=== PATIENT | female | born 1965 | race Two or more races ===

== ENCOUNTER 2022-08-28 10:42 | Inpatient (IN) | payer SELFPAY ==
[~2022-08-28] VITALS: Ht 165.1 cm; Wt 87.7 kg
--- NOTE | ~2022-08-28 | CONS ---
[facility] [address], [place] [address] Draft DATE OF CONSULTATION: REQUESTING PHYSICIAN: Kody Muñiz MD HISTORY OF PRESENT ILLNESS: The patient is a 57-year-old, who came to the emergency room yesterday with a complaint of abdominal and pelvic pain. She reports the pain over most of the abdomen with some sharp pain in the vaginal area. The sharp pain started yesterday morning. She does have a long history of vaginal pressure and bulging, but this had not really caused any issues for her up to this point. She denied any nausea, vomiting, dysuria, or fever. During the course of her evaluation, she was found to have gallstones, though there was no evidence of cholecystitis. She was also found to have a right adnexal mass with some free fluid and possible involvement of the omentum. She was also found to have an apparent UTI. She is actually feeling much better today. She has been only on clear liquids since her admission. She reports her last Pap smear was about four years ago with her primary care. She was told that this was normal as was her exam. Her last mammogram was about four years ago as well. She is a 4, para 3, ectopic 1. Her children were weighed 6-7 pounds only. She denies any complications with her childbirth. PAST MEDICAL HISTORY: Surgeries: Left knee tendon surgery, right ectopic . Illnesses: Positive for type 2 diabetes, and denies any sequelae from this. Positive for hypothyroidism on replacement. Positive for hypertension. ALLERGIES: Aspirin with rash. MEDICATIONS: 1. Metformin. 2. Glipizide. 3. Lisinopril. 4. Levothyroxine. 5. Lovastatin. HABITS: Never tobacco, alcohol, or drug use. NURSERY ATTENDANT HISTORY: Last Pap was about four years ago. Last mammogram was about four years ago. She is a 4, para 3, ectopic 1. No vaginal bleeding and reported menopause approximately at age 50. PATIENT NAME: MARÍA BERGMAN CONSULTATION DATE OF : 61 REPORT #: [id number] PHYSICIAN: MARISOL PANG MD PCP: MUKUND FRAZIER MD REPORT IS CONFIDENTIAL AND NOT TO BE RELEASED WITHOUT AUTHORIZATION [facility] [address], [place] [address] Draft REVIEW OF SYSTEMS: : Denies any urgency, frequency, incomplete emptying, or any incontinence. GI: Denies nausea, vomiting, GERD, or change in bowel habits. PHYSICAL EXAMINATION: VITAL SIGNS: On exam, blood pressure is 111/63, pulse 117, and temperature 99.8. GENERAL: She is a well-developed, well-nourished female, in no acute distress. NEUROLOGIC: She is alert and oriented. Her affect is pleasant and cooperative. She is Citizen [place] speaking and history was obtained through an clinical rn manager, both with the tele-clinical rn manager as well as a Citizen [place]-speaking nurse. LUNGS: Clear. HEART: Regular rate and rhythm without murmur. ABDOMEN: Active bowel sounds. It was obese and soft. It was diffusely tender, but mostly in the epigastric and right upper quadrant area as well as the suprapubic area. PELVIC: The Bartholin's, urethra, and [place]'s glands were normal. There was a very short perineum. There was a grade 4 cystocele with bulging beyond the introitus. The cervix presented within 2 cm of the hymen and was nontender and non friable. The uterus appeared to be normal size, firm, and nontender. The adnexa, no obvious masses palpated and she was not tender, but her exam was limited by her obesity. The bladder, however, was tender. Rectal examination confirmed. LABORATORY DATA: Her labs revealed a white count of 12.6 today, hemoglobin of 12.2, hematocrit of 36.3, left shift of 87.6, and platelets 296. Chemistry revealed a sodium of 132, potassium 3.9, chloride 100, CO2 of 20, BUN 12, creatinine 0.8, and glucose 217. Normal LFTs. IMAGING STUDIES: Abdominal pelvic CT done in the emergency room showed a marked pelvic floor prolapse with large cystocele dragging down the ureteral orifices. There is some compression of the right distal ureter with a complex partially solid mass seen in the right adnexa as well as cholelithiasis. Pelvic ultrasound done today revealed the right ovary was 8.9 x 3.6 x 6.2 with a complex cystic lesion versus multiple small complex cysts with a small amount of free fluid. Normal uterus and normal left ovary. IMPRESSION: Cholelithiasis, urinary tract infection, significant uterovaginal prolapse, as well as a right adnexal mass. I think the majority of her pain is related to her gallbladder as well as her urinary tract infection. She does have significant uterovaginal prolapse and it is important that this be reduced given the effect on the ureters and her right kidney. She is interested in trying a pessary at this point, and if this will reduce her prolapse significantly and she is comfortable with this, she may potentially be able to avoid surgery for the uterovaginal prolapse. The right adnexal mass at this point does not appear to be worrisome, though this will probably eventually need to be PATIENT NAME: MARÍA BERGMAN CONSULTATION DATE OF : 61 REPORT #: [id number] PHYSICIAN: MARISOL PANG MD PCP: MUKUND FRAZIER MD REPORT IS CONFIDENTIAL AND NOT TO BE RELEASED WITHOUT AUTHORIZATION [facility] [address], [place] [address] Draft addressed. We are awaiting a CA-125, but the general appearance of this ovary is not malignant. PLAN: Pap with HPV obtained. PROCEDURE: She was fitted for a pessary and was found to have a 2.5 Gellhorn, which was comfortable for her and she was able to void and this significantly reduced her prolapse. We will recheck her in the office in one month for this. Consult results were discussed with Dr. Muñiz. Marisol Pang MD PJW/MODL /[id number] Copies: ~ PATIENT NAME: MARÍA BERGMAN CONSULTATION DATE OF : 61 REPORT #: [id number] PHYSICIAN: MARISOL PANG MD PCP: MUKUND FRAZIER MD REPORT IS CONFIDENTIAL AND NOT TO BE RELEASED WITHOUT AUTHORIZATION
[2022-08-28] MEDS ORDERED: METFORMIN HCL1000 MG PO (11:25)
[2022-08-28] MEDS ORDERED: LISINOPRIL20 MG PO (11:26)
[2022-08-28] MEDS ORDERED: LEVOTHYROXINE125 MC1 PO (11:26)
[2022-08-28] MEDS ORDERED: LIPITOR20 MG PO (11:27)
--- NOTE | 2022-08-28 16:08 | NUR ---
AT 1553 BEDSIDE REPORT RECIEVED FROM DARIUS BOWEN PT ARRIVED TO MED SURG ROOM 122, VIA STRETCHER. PT ABLE TO MOVE SELF FROM STRETCHER TO BED W/O DIFFICULTY. FAMILY AT BEDSIDE. ORIENTED TO CALL LIGHT, WITHIN REACH.
[2022-08-28] MEDS ORDERED: GLUCOTROL XL5 MG PO (16:32)
[2022-08-28] MEDS ORDERED: LOVASTATIN20 MG PO (16:33)
--- NOTE | 2022-08-28 16:33 | NUR ---
CURRICULUM DIRECTOR SERVICES OBTAINED THROUGH IPAD - SURGEON ALLOWS FAMILY TO TRANSLATE.
[2022-08-28] MEDS ORDERED: LEVOTHYROXINE125 MCG PO (17:46)
[2022-08-28] MEDS ORDERED: ADULT LOW DOSE81 MG PO (17:46)
--- NOTE | 2022-08-28 17:46 | NUR ---
MED REC COMPLETE
--- NOTE | 2022-08-28 19:30 | NUR ---
REPORT RECEIVED FROM DARIUS MADRID. PT LAYING IN BED AND RESPONDS WHEN ADDRESSED. FAMILY IN ROOM ON COUCH. PT REQUESTING WATER, WATER PROVIDED. PT DENIES ANY OTHER NEEDS AT THIS TIME. CALL LIGHT IN REACH.
--- NOTE | 2022-08-28 19:40 | NUR ---
MD UPDATED ON CT RESULTS VIA TELEPHONE - ORDER RECEIVED TO CHANGE FLUIDS AND DIET ORDER. NO FURTHER ORDERS RECEIVED. MD TO CONSULT UROLOGY.
--- NOTE | 2022-08-28 20:24 | NUR ---
PT. BLOOD GLUCOE CHECKED AND DOCUMENTED. PT. VITALS SIGNS CHARTED. NURSE NOTIFIED OF TACHYCARDIA AND FEVER. FRESH ICE WATER PROVIDED. NO I/OS TO DOCUMENT, PT. ENCOURAGED TO DRINK FLUIDS. CALL LIGHT LEFT WITHIN REACH. NO OTHER IMMEDIATE NEEDS AT THIS TIME.
--- NOTE | 2022-08-28 20:54 | NUR ---
IN TO ADMINISTER MEDICATION, SEE MAR. PT SITTING UP IN BED WITH LIGHTS IN ROOM OFF. PT RESPONDS WHEN ADDRESSED. FAMILY IN ROOM. VITALS AND I&Os COMPLETE. PT DENIES TOILETING AT THIS TIME. ASSESSMENT COMPLETE. LUNG SOUNDS CLEAR. BOWEL TONES HYPOACTIVE. PT REPORTS TENDERNESS TO ABD WITH PALPATION. PT REPORTING PAIN 4/10 IN ABD AND REQUESTING PRN PAIN MEDICATION. PRN PAIN MEDICATION ADMINISTERED, SEE MAR. PT DENIES ANY OTHER NEEDS AT THIS TIME. CALL LIGHT IN REACH. FAMILY IN ROOM DENIES ANY NEEDS AT THIS TIME.
--- NOTE | 2022-08-28 22:35 | NUR ---
IN TO ROUND ON PT. MARLIN PULIDO IN ASSISTING PT WITH TOILETING. PT REPORTING PAIN /. PT DENIES ANY OTHER NEEDS AT THIS TIME. CALL LIGHT IN REACH. FAMILY IN ROOM.
--- NOTE | 2022-08-28 22:37 | NUR ---
ASSISTED PT. TO BATHROOM. PT. VOIDED, OUTPUT DOCUMENTED. PT. BRUSHED TEETH AND IS BACK IN BED. CALL LIGHT LEFT WITHIN REACH. NO OTHER IMMEDIATE NEEDS AT THIS TIME.
--- NOTE | 2022-08-29 00:30 | NUR ---
IN TO ROUND ON PT. PT LAYING IN BED WITH EYES CLOSED. RR EVEN AND UNLABORED. IN CHAIR AT BEDSIDE AND STATES "EVERYTHING IS FINE" WHEN ASKED IF EVERYTHING WAS OKAY. DENIES ANY NEEDS AT THIS TIME. CALL LIGHT IN REACH.
--- NOTE | 2022-08-29 02:07 | NUR ---
IN TO ROUND ON PT. PT RESTING IN BED WITH EYES CLOSED. RR EVEN AND UNLABORED. MARLIN GUARDADO IN TO ASSIST WITH VITALS. VITALS AND I&Os COMPLETE. ASSESSMENT COMPLETE. LUNG SOUNDS CLEAR. BOWEL TONES ACTIVE. PT DENIES PAIN AT THIS TIME. WATER PROVIDED. PT DENIES TOILETING AT THIS TIME. PT DENIES ANY OTHER NEEDS AT THIS TIME. CALL LIGHT IN REACH. IN CHAIR DENIES ANY NEEDS.
--- NOTE | 2022-08-29 03:21 | NUR ---
IN CHAIR AT BEDSIDE.
--- NOTE | 2022-08-29 04:03 | NUR ---
IN IV PUMP ALARMING, RESOLVED. PT REPOSITIONING SELF IN BED. PT REPORTING PAIN /10 AND REQUESTING PRN PAIN MEDICATION. PRN PAIN MEDICATION ADMINISTERED, SEE MAR. PT TAKES PO MEDICATION WITH NO ISSUES. WATER PROVIDED. PT DENIES ANY OTHER NEEDS AT THIS TIME. CALL LIGHT IN REACH. IN CHAIR DENIES ANY NEEDS.
--- NOTE | 2022-08-29 05:08 | NUR ---
IN TO ROUND ON PT. LAB IN ROOM. VITALS AND I&Os COMPLETE. PT DENIES TOILETING NEEDS AT THIS TIME. MEDICATION ADMINISTERED, SEE MAR. PT TAKES PO MEDICATION WITH NO ISSUES. PT DENIES ANY OTHER NEEDS AT THIS TIME. CALL LIGHT IN REACH. IN CHAIR DENIES ANY NEEDS AT THIS TIME.
--- NOTE | 2022-08-29 06:47 | NUR ---
IN TO ROUND ON PT. PT REQUESTING TOILETING. PT AMBULATES A SBA FROM BED TO RESTROOM AND BACK TO BED. URINE OUTPUT NOTED TO BE CONCENTRATED. PT DENIES ANY OTHER NEEDS AT THIS TIME. CALL LIGHT IN REACH.
--- NOTE | 2022-08-29 08:00 | NUR ---
RECIEVED SHIFT REPORT. PT LAYING IN BED, AWAKE. REPORTS SHOULDER PAIN, REFUSES PRN PAIN MEDICATION. CALL LIGHT IN REACH.
--- NOTE | 2022-08-29 09:38 | NUR ---
PT RESTING IN BED, REPORTED SHOULDER PAIN 8/10, PRN PAIN MEDICATION ADMINISTERED (PER EMAR). DR DELGADO IN ROOM TO DISCUSS POC WITH PT AND FAMILY. PT DENIES NAUSEA, REMAINS FEELING BLOATED. BOWEL TONES HYPOACTIVE IN ALL QUADRANTS, TENDER WITH PALPATION. CALL LIGHT IN REACH. FAMILY AT BEDSIDE.
--- NOTE | 2022-08-29 11:50 | NUR ---
PT RESTING IN BED, PAIN 4/10, TOLERABLE. CALL LIGHT IN REACH. FAMILY AT BEDSIDE.
--- NOTE | 2022-08-29 13:50 | NUR ---
PT TRANSFERED VIA WC TO [facility] ROOM FOR PELVIC EXAM WITH DR BOURNE. BRADLEY RN IN ROOM FOR TRANSLATION. PT POSITIONED ON STRETCHER, PELVIC EXAM PERFORMED BY DR BOURNE WITH THIS RN AND BRADLEY RN PRESENT. PESSARY PLACED BY DR BOURNE, PT TOLERATED EXAM AND PESSARY PLACEMENT WELL WITH MINIMAL PAIN. PT ABLE TO SIT, STAND AND URINATE AFTER PESSARY PLACEMENT. DR BOURNE DISCUSSED FOLLOW UP VISIT WITH PT IN ONE WITH. PT VERBALIZED UNDERSTANDING VIA TRANSLATION. PT TRANSFERED BACK TO RM 122. PT DENIES FURTHER NEEDS AT THIS TIME. CALL LIGHT IN REACH.
--- NOTE | 2022-08-29 14:31 | NUR ---
PT REPORTS HAVING A FEVER, THIS RN IN ROOM TO ASSESS. 99.1 ORAL. CALL LIGHT IN REACH. PT REFUSED A COOL WASH CLOTH.
--- NOTE | 2022-08-29 15:00 | NUR ---
PT UPDATED ON POC TO HAVE SURGERY TOMORROW. JOB INTERVIEWER USED. ALL QUESTIONS ANSWERED.
--- NOTE | 2022-08-29 15:10 | NUR ---
PT REQUESTED PAIN MEDICATION, / IN THE ABD. PRN MEDICATION ADMINISTERED (PER EMAR). DENIES FURTHER NEEDS. CALL LIGHT IN REACH. FAMILY AT BEDSIDE.
--- NOTE | 2022-08-29 16:42 | NUR ---
PT RESTING IN BED, EYES CLOSED, BREATHING EVEN AND UNLABORED. FAMILY AT BEDSIDE. CALL LIGHT IN REACH
--- NOTE | 2022-08-29 16:50 | NUR ---
PT IN PERSONAL WHEELCHAIR, NO URINE SINCE CATHETER REMOVED. CAREGIVER STATED PT HOLDS URINE WHEN UPRIGHT. MD NOTIFIED, NO NEW ORDERS.
--- NOTE | 2022-08-29 18:40 | NUR ---
SPOKE WITH DR DELGADO REGARDING PT TEMP 101.3, HR 139, RR 30 AND PT NOT URINATING SINCE PESSARY PLACEMENT AT 1400. DISCUSSED SEPSIS PROTOCOL ORDERS, FLUID BOLUS, AND POSSIBLE UROLOGY CONSULT. TELEPHONE ORDERS FOR BLOOD CULTURES, LEVAQUIN PER PHARMACY DOSE, ADMINISTER TYLENOL AND INCREASE FLUID TO 100MLS/HR. DR DELGADO VERBALIZED HE WOULD DISCUSS PLAN OF CARE WITH DR BOURNE AND RADIOLOGIST FOR POTENTIAL IMAGING. THIS RN DISCUSSED PT VS, PRESENTATION AND PHONE CALL TO DR DELGADO WITH SCIENCE FACULTY MEMBER.
--- NOTE | 2022-08-29 19:50 | NUR ---
PLACED CALL TO MD DUE TO CRITICAL LACTIC. NO NEW ORDERS AT THIS TIME.
--- NOTE | 2022-08-29 20:37 | NUR ---
assited dr willis to use physical medicine physician to explain updated plan of care.
--- NOTE | 2022-08-29 21:05 | NUR ---
DR. DELGADO IS HERE AT BEDSIDE. NEW ORDERS PLACED IN [facility] AND CARRIED OUT. CRITICAL LABS HAVE BEEN REPORTED TO DR. BREEN. PATIENT STARTED ON ABX.
--- NOTE | 2022-08-30 02:02 | NUR ---
PATIENTS IV ABX INFUSING PER ORDER. PATIENT IS NOW SL PER ORDER. PATIENT DENIES ANY PAIN OR NAUSE. PATIENT DENIES ANY NEEDS. CALL LIGHT IN REACH.
--- NOTE | 2022-08-30 03:45 | NUR ---
PATIENT ASSISTED TO THE BR A SBA. PATIENT ABLE TO VOID. PATIENT BACK IN BED RESTING. PATIENT IS RED IN THE FACE AND APPEARS PAINFUL AND IS HOLDING HER LOWER ABD. PATIENTS VITALS TAKEN AND RECORDED. PATIENTS HR ELEVATED. PATIENT DENIES ANY PAIN BUT IS HOLDING HER ABD AND APPEARS PAINFUL. PATIENT OFFERED PAIN MEDICATION AND AGREES TO TAKE PAIN MEDICATION. VOLODYMYR MCCOY ADMINISTERED PAIN MEDICATION PER ORDER. PATIENTS TEMP REEVALUATED PATIENT IS NOW DIAPHORETIC. PATIENT HAS ELEVATED TEMP OF 101.7. PATIENTS HR HAS INCREASED AND RANGES FORM 170-185. PATIENTS APICAL PULSE AUSCULTATED AND RADIAL PULSE PALPATED. PATIENTS HR IS NOTE TO BE IRREGULAR. PLACED CALL TO DR DELGADO AND RECIEVED ORDER FOR EKG. DR DELGADO ON WAY TO ASSES PATIENT. 0245 RAPID RESPONSE CALLED. 0250 RT, LAB, IMAGING, ED MD, SECURITY, FACTORY HELPER, AND HOUSE FLOAT AT BEDSIDE. RAPID REPONSE EVENT FOLLOWS: 0250 CRASH CARD PADS PLACED AND 12 HOOKED UP, OXYGEN 2LNC PLACED 0256 ADENOSINE 6MG IV PUSH GIVEN 0257 HR 200 0259 12MG ADENOSINE IV PUSH GIVEN, HR 203 0259 HR 220 0302 150MG ADENOSINE IV PUSH GIVEN [address] DELGADO AT [facility] [address]304 DR STAPLES CALLED BY FACTORY HELPER 0305 HR 175 0307 CARDIZEM 20 MG IV PUSH GIVEN, HR 160 0308 135/91 (101), 02 94% 0309 99.9 TEMP ORAL 0310 GR 165 0312 BP 125/85 (93), HR 165 0314 CARDIZEM 25MG IV PUSH GIVEN 0316 HR 165 0317 CARDIZEM IV DRIP 10MG/HR STARTED 0317 LABS DRAWN 0322 121/70 (82), HR 175, 92% ON 2L VIA NC 0322 CARDIZEM DRIP INCREASED TO 15MG/HR 0330 TRANSFERED TO CCU WITH VOLODYMYR MCCOY
--- NOTE | 2022-08-30 04:23 | NUR ---
RAPID RESPONSE CALLED TO ROOM FOR RAPID ARRYTHMIA, PT put on 3LNC, AND GIVEN2 DOSES OF ADENOSINE, NOCONVERSION NOTED, TRTANSFERRED TO CCU AND WAS CARDIOVERTED WITH PRESENT, PT CONVERTED TO SINUS TACH AT 120'S. EKG'S DONE PRE CONVERSION ATTEMPTS AND POST ELECTRICAL CARDIOVERSION
--- NOTE | 2022-08-30 04:27 | NUR ---
0205-WALKING PATIENT BACK FROM THE BATHROOM HR WENT INTO THE 180S AND SUSTAINING. BP STABLE AT THE TIME. DR. BREEN CONTACTED VIA CELL PHONE. ASSISTANT PROFESSOR OF DIETETICS CALLED DUE TO PATIENT CONDITION, HR SUSTAINING HIGH 200. ER DOCTOR AND CODE TEAM AT BEDSIDE.
--- NOTE | 2022-08-30 04:27 | NUR ---
0330 PATIENT MOVED TO CCU. ED DOCTOR, DR. STAPLES AND DR. DELGADO IN ROOM. RT AND ROOFER VINYL COATING ALSO PRESENT. PATIENT'S HR 170'S ON CARDIZEM TITRATED FROM 15 TO 20 MG/HR. PATIENT IS ALERT, DENIES PAIN. GUNCOTTON PACKER IN USE. PATIENT HAS ORAL TEMP 101.9 F. PO TYLENOL ORDERED BY ED MD. PATIENT TOOK WITHOUT ISSUE. DECISION MADE BETWEEN ALL THE DOCTORS AND PATIENT TO PERFORM CARDIOVERSION. PATIENT PROVIDED VERSED AND FETANYL FOR SEDATION. SYNCHRONIZED SHOCK DELIVERED AT 200 J. HR 126; A. FIB. BP STABLE. PATIENT ALERTS TO VOICE. REDOSED VERSED AND FETANYL. SYNCHRONIZED SHOCK 260 J DELIVERED. SINUS TACH HR 127. 12-LEAD EKG OBTAINED. CARDIZEM STOPPED. AMIODARONE STARTED PER ORDER. PATIENT ALERTS TO VOICE, IS RESTFUL. FAMILY AT BEDSIDE.
--- NOTE | 2022-08-30 07:30 | NUR ---
report received from night rn - pt resting in bed, alert and oriented. assessment complete - see assessment for details. pt informed of ct study, denies questions at this time. prepared for transfer down to radiology dept.
--- NOTE | 2022-08-30 08:08 | NUR ---
CALLED PLACED TO [facility] TO TRANSFER CENTER FOR TRANSFER. THEY WILL CALL BACK BUT STATES UNLIKELY TO HAVE ICU OR TELE BED
--- NOTE | 2022-08-30 08:16 | NUR ---
PT BACK TO CCU FROM CTA - TOLERATED PROCEDURE WITHOUT DIFFICULTY, VS REMAINED WNL DURING DURATION. BEAN SPROUT GROWER SERVICE USED DURING SCAN. DR. DELGADO NOW IN ROOM USING TRANSLATION SERVICE TO UPDATE PT AND FAMILY ON POC TO TRANSFER TO DIFFERENT FACILITY FOR CARE.
--- NOTE | 2022-08-30 08:41 | NUR ---
scheduled medications administered - iv sites patent x3. pt alert and oriented, diaphoretic with increased work of breathing, spo2 stable on 2l nc. pt denies worsening symptoms when asked. denies chest pain or any complaints other than persistant periumbilical abd pain. bowel sounds hypoactive, abd noted to be further distended than prior shift reports. lung sounds dim at bases, difficulty to assess with rate of breathing.
--- NOTE | 2022-08-30 08:42 | NUR ---
[facility] TRANSFER [place] HAS CALLED BACK, [facility] DOES NOT HAVE THE SPECIALTIES, BUT [facility] DOES BUT DOES NOT HAVE A BED. PT PLACED ON WAITLIST.
--- NOTE | 2022-08-30 09:39 | NUR ---
bag #2 amiodarone started. hr and bp stable.
--- NOTE | 2022-08-30 10:54 | NUR ---
pt resting in bed with hob elevated, rr remains elevated at 30 despite reposistioning. temp catherine placed without difficulty, immediate 125 out after void of 650 on bed gil before placement. prn for pain administered iv, pt rates pain 5/10 in RUQ. family at bedside, deny questions at this time. call light in reach.
--- NOTE | 2022-08-30 11:50 | NUR ---
report given to flight rn's, staff translation used during preperation to transfer for communication to pt and family.
--- NOTE | 2022-08-30 12:16 | NUR ---
pt off floor via stretcher with life flight.
--- NOTE | 2022-08-30 12:53 | NUR ---
report called to dylan at [address]
--- NOTE | 2022-08-30 13:24 | NUR ---
PT DENIES CHEST PAIN OR ANY OTHER LOCATION
--- NOTE | 2022-08-30 17:11 | EKG ---
[facility] [address] [place], [place] [address] Signed Sinus tachycardia Left axis deviation Possible Anterolateral infarct , age undetermined Abnormal ECG No previous ECGs available Confirmed by REAL STAPLES MD ([id number]) on 08/30/2022 5:11:27 PM Electronically Signed By: REAL STAPLES MD 08/30/221710 PATIENT NAME: MARÍA BERGMAN Electrocardiogram DATE OF : 61 PHYSICIAN: REAL STAPLES MD REPORT #: [id number] REPORT IS CONFIDENTIAL AND NOT TO BE RELEASED WITHOUT AUTHORIZATION
--- NOTE | 2022-08-31 16:21 | CONS ---
[facility] [address] [place], [place] [address] Signed DATE OF CONSULTATION: 08/28/2022 CHIEF COMPLAINT: Generalized abdominal pain. HISTORY OF PRESENT ILLNESS: Mercy is a 57-year-old lady who happens to be diabetic with hypothyroidism, hypertension. 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 She slept through the night and woke up in the morning with generalized abdominal pain, but it seemed to be worse on the right. She came to the emergency room for evaluation. In the emergency room, her white count was borderline at 10, and a slight increase in AST and ALT, but the alkaline phosphatase and total bilirubin are normal. Lipase was normal as well as albumin. Urine showed 3+ bacteria with white blood cells and nitrites. There was no blood. COVID was negative. She had initial ultrasound done with showing some hepatic steatosis along with possible small volume of ascites and gallstones measuring around 2.2 cm. The gallbladder wall was not thickened. The common bile duct was 5.2 mm, but she did have some mild right hydronephrosis and proximal right hydroureter. Apparently, the Jacobson sign was negative during the evaluation. I have been asked to see her as a general surgeon on-call. I had been operating, so she was admitted directly to the floor. In the meantime, she has received Rocephin and Flagyl and some pain control. PAST MEDICAL HISTORY: 1. Hypothyroidism. 2. Diabetes. 3. Hypertension. 4. Hypercholesterolemia. 5. Obesity. PAST SURGICAL HISTORY: Left knee tendon. SOCIAL HISTORY: She does not smoke or drink. She is single but has three children, all born vaginally. 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 She does not drive. She lives in [place], [place]. She goes to the [email or web address] and uses the [facility]. Shilpa is her daughter at [phone]. FAMILY HISTORY: None. REVIEW OF SYSTEMS: She had 10 systems reviewed. She talked about surgery on the left knee tendon. Electronically Signed By: HALIE DELGADO MD 08/31/22 1621 PATIENT NAME: MERCY GRIER CONSULTATION DATE OF : 61 REPORT #: [id number] PHYSICIAN: HALIE DELGADO MD PCP: MUKUND FRAZIER MD REPORT IS CONFIDENTIAL AND NOT TO BE RELEASED WITHOUT AUTHORIZATION [facility] [address] [place] [id number] Signed ALLERGIES: None. MEDICATIONS: 1. Metformin 1000 mg p.o. b.i.d. 2. Levothyroxine 125 mcg p.o. daily. 3. Lisinopril 20 mg p.o. daily. 4. Atorvastatin 20 mg p.o. daily. PHYSICAL EXAMINATION: VITAL SIGNS: Her blood pressure is 131/70, heart rate 103, respiratory rate 20, temperature was 100. She is 97% on room air. She is 5 feet 5 inches and 87 kg. Her body mass index is 32. GENERAL: Mercy is a 57-year-old female, lying supine semi-recumbent in her hospital bed. Her son is in the room. Her sister is present as well. She does not appear systemically ill or toxic. She is not jaundiced. LUNGS: Clear to auscultation. HEART: A little tachycardic. ABDOMEN: Obese, but soft. It seems like her main point of tenderness is in the right upper quadrant. I cannot feel the gallbladder. LABORATORY DATA: Her white blood cell count is 10, hemoglobin 14, neutrophils 77. Her BUN 17, creatinine 0.8, glucose 232. COVID negative. Urine showed the 3+ bacteria with white blood cells and nitrites. Urine culture is pending. Total bilirubin 0.8, AST slightly up at 69, ALT slightly up at 65, alkaline phosphatase normal at 114, albumin is 4.0, lipase 110. RADIOGRAPHIC STUDIES: The gallbladder ultrasound shows hepatic steatosis, possibly a small volume of ascites, gallstones around 2.2 cm. The gallbladder wall was not thickened, bile ducts 5.2 mm. She does have the right mild hydronephrosis and hydroureter. Apparently, the Jacobson sign was negative. ASSESSMENT AND PLAN: Mercy is a 57-year-old female, who presents with her diabetes and probably some level of gallbladder disease. Certainly cholelithiasis, but she also has the right hydroureter and hydronephrosis. She is stable at this point. We are going to pursue a CT urogram to evaluate the distal ureter and her bladder. After that, we will proceed from there. I have discussed this with Mercy and her family. They have expressed understanding and agree to above plan. Electronically Signed By: HALIE DELGADO MD 08/31/22 1629 PATIENT NAME: MERCY GRIER CONSULTATION DATE OF : 61 REPORT #: [id number] PHYSICIAN: HALIE DELGADO MD PCP: MUKUND FRAZIER MD REPORT IS CONFIDENTIAL AND NOT TO BE RELEASED WITHOUT AUTHORIZATION [address] [address] Signed Halie Delgado MD ALB/MODL /[id number] cc: Halie Delgado MD [facility] [email or web address] Copies: HALIE DELGADO MD ~ Electronically Signed By: HALIE DELGADO MD 08/31/22 1621 PATIENT NAME: MADALYN MCNEILMERCY CONSULTATION DATE OF : 61 REPORT #: [id number] PHYSICIAN: HALIE DELGADO MD PCP: MUKUND FRAZIER MD REPORT IS CONFIDENTIAL AND NOT TO BE RELEASED WITHOUT AUTHORIZATION
--- NOTE | 2022-08-31 16:21 | DS ---
[facility] [address] [place], [place] [address] Signed ADMISSION DATE: 08/30/2022 DISCHARGE DATE: 08/30/2022 FINAL DIAGNOSES: 1. Cholecystitis with cholelithiasis. 2. Right hydronephrosis and hydroureter secondary to large cystocele. 3. Complex benign appearing right ovarian mass. PROCEDURES: 1. Ultrasound of gallbladder. 2. Ultrasound of pelvis. 3. Renal ultrasound. 4. CT urogram. 5. Chest x-ray. 6. CT angiogram. 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 She has had three children born vaginally and has hypothyroidism, diabetes, hypertension, hypercholesterolemia. She had slept through the night, had woke early in the morning on 08/28/2022. She was having generalized abdominal pain, but it seemed to be more right-sided. She has gone to the emergency room for evaluation. Her white count was 10,000 and just a slight increase in AST, ALT. Ultrasound was ordered and she appeared to have some gallstones measuring up to 2.2 cm, but the gallbladder wall was not thickened. The common bile duct was 5.2 mm with a small volume of ascites. Apparently, the Jacobson sign was negative. She appears to have hepatic steatosis. She had some mild right hydronephrosis and hydroureter. She had been admitted to my service while I was operating. She had received her initial IV fluids and antibiotics including Rocephin and Flagyl. HOSPITAL COURSE: I got to [facility]cy a little after 4 o'clock that afternoon after I finished operating. After reviewing her chart, we decided to order a CT urogram. She has complete pelvic descent and both ureters were pulled down, but the cystocele was compressing the right ureter against the pelvic sidewall causing the obstruction. The urine had 3+ bacteria with white blood cells and nitrites. We therefore had our assistant toddler teacher come and on exam the cystocele was reduced and a pessary was placed. She was able to void immediately afterwards. About 5 hours later, we checked a renal ultrasound and she had bilateral ureteral jets. She had a couple of temperature spikes with some tachycardia and tachypnea, but that resolved quickly with some Tylenol. I had spoke with our urologist at [facility]. We decided to discontinue the Rocephin and move up to Electronically Signed By: HALIE DELGADO MD 08/31/22 1621 PATIENT NAME: MER[facility] GRIER DISCHARGE SUMMARY DATE OF : 61 REPORT #: [id number] PHYSICIAN: HALIE DELGADO MD PCP: MUKUND FRAZIER MD REPORT IS CONFIDENTIAL AND NOT TO BE RELEASED WITHOUT AUTHORIZATION [address] [address] Signed Levaquin and continue the Flagyl. I had gone home late that evening. The next evening we were thinking we were going to do her surgery this morning. About 2:30 or so in the morning I was called again with another temperature spike when she got up to go to the restroom. She went into AFib with a rapid ventricular rate and some tachypnea. We gave her diltiazem and amiodarone with just mild results. We transferred her down to our ICU and had our hospitalist service come see her. In the meantime, our ER doctor helped with her cardioversion. That put her back into sinus rhythm, but she still has a heart rate around 105 beats per minute. In the meantime, I had to attend to a couple of other patients including a surgery with incarcerated bowel. Upon my return, Mercy seems to be doing about the same at this time. Her white count jumped as high as 18,000 at this point. The lactic acid went up a little bit, but it has come back down. Liver function tests are actually normal. Because the D-dimer is up a little bit, the hospitalist service ordered the CT scan angiogram and that has not been read quite yet. In the meantime, I reviewed this with my Anesthesia provider. Of course, she represents high risk for anesthesia and surgery. On exam, she is now a little bit distended although she never complains much. She seems to be most consistent in the right upper quadrant with her complaint. We decided she would be much better served at a larger referral center with specialists available to her. This would include Interventional Radiology with possible percutaneous drainage of the gallbladder until her sepsis can settle down and she can have surgery at a much safer time. The hospital in [place], [place] has accepted her. I have reviewed this with their hospitalist, Dr. Nishi Jacobsen. We are in the process now of filling all the paperwork and we are waiting her bed assignment and will be calling her [facility] soon. With the help of our historical interpreter on our historical interpreter line, we have spoken now with Mercy, her brother, her sister and her son in great detail. They have expressed understanding and agree to above plan. Halie Delgado MD ALB/MODL /[id number] cc: Halie Delgado MD [facility] Electronically Signed By: HALIE DELGADO MD 08/31/22 1621 PATIENT NAME: MERCY GRIER DISCHARGE SUMMARY DATE OF : 61 REPORT #: [id number] PHYSICIAN: HALIE DELGADO MD PCP: MUKUND FRAZIER MD REPORT IS CONFIDENTIAL AND NOT TO BE RELEASED WITHOUT AUTHORIZATION [address] [place], [place] [address] Signed Copies: HALIE DELGADO MD ~ Electronically Signed By: HALIE DELGADO MD 08/31/22 1621 PATIENT NAME: MERCY GRIER DISCHARGE SUMMARY DATE OF : 61 REPORT #: [id number] PHYSICIAN: HALIE DELGADO MD PCP: MUKUND FRAZIER MD REPORT IS CONFIDENTIAL AND NOT TO BE RELEASED WITHOUT AUTHORIZATION
== END 2022-08-30 12:15 | disposition short-term general hospital (02) | DRG 445 ==
LOC: ED 10:42 → MS 10:44 → CCU 08-30 03:30
PROVIDERS: ADMIT Colon & Rectal Surgery; ATTEND Colon & Rectal Surgery
PROC: 5A2204Z Restoration of Cardiac Rhythm, Single (ICD-10-PCS; principal; 2022-08-30)
DX: K80.20 Calculus of gallbladder without cholecystitis without obstruction (principal); N39.0 Urinary tract infection, site not specified; I48.91 Unspecified atrial fibrillation; E11.9 Type 2 diabetes mellitus without complications; Z20.822 Contact with and (suspected) exposure to COVID-19; E03.9 Hypothyroidism, unspecified; I10 Essential (primary) hypertension; N81.4 Uterovaginal prolapse, unspecified; Z98.890 Other specified postprocedural states; Z79.84 Long term (current) use of oral hypoglycemic drugs; Z79.890 Hormone replacement therapy; Z79.899 Other long term (current) drug therapy
CPT/HCPCS: 36415; 71045; 71260; 74176; 76705; 76770; 76830; 76856; 80053; 81001; 83605; 83690; 83735; 84100; 84443; 84484; 85025; 85379; 85610; 86304; 93005; 93010; 96374; 96375; 99285-25; A9270; C9113; C9803; J0153; J0282; J0696; J1170; J1650; J1815; J1885; J1956; J2250; J2405; J3010; J3475; J3480; J3490; J7030; J7042; J7060; Q9967; U0003

== ENCOUNTER 2023-02-05 11:54 | Inpatient (IN) | payer OTHER ==
[~2023-02-05] VITALS: Ht 165.1 cm; Wt 85.5 kg
--- NOTE | ~2023-02-05 | OR ---
[facility] [address] [place], [place] [address] Draft DATE OF OPERATION: 03/17/2023 SURGEON: Marisol Pang MD VEHICLE DAMAGE APPRAISER: Doan. PREOPERATIVE DIAGNOSIS: Complete uterovaginal prolapse, pelvic adhesions. POSTOPERATIVE DIAGNOSIS: Complete uterovaginal prolapse, pelvic adhesions. PROCEDURES: Total laparoscopic hysterectomy, lysis of adhesions, cystoscopy, anterior repair sling procedure, posterior repair, sacrospinous cuff suspension. ANESTHESIA: General ET. ESTIMATED BLOOD LOSS: 200 mL. DRAINS: Buckner catheter. PACKS: Vaginal. INDICATIONS AND FINDINGS: The patient is a 57-year-old female, who was diagnosed with complete uterovaginal prolapse during hospital stay in August. She was initially using a pessary, but this has become more difficult to maintain as it is coming out currently. She now desired surgical correction. She was not interested in colpocleisis. At the time of surgery, she had complete uterovaginal prolapse. The uterus itself was quite small. On laparoscopy, her right tube and ovary as well as her appendix were missing from her prior ruptured appy and TOA. She had adhesions behind the uterus and the left ovary was somewhat adhesed to the left pelvic sidewall. She had undergone prior tubal ligation. DESCRIPTION OF PROCEDURE: PATIENT NAME: MARÍA GRIER OPERATIVE REPORT DATE OF : 61 REPORT #: [id number] PHYSICIAN: MARISOL PANG MD PCP: MUKUND FRAZIER MD REPORT IS CONFIDENTIAL AND NOT TO BE RELEASED WITHOUT AUTHORIZATION [facility] [address] [place], [place] [address] Draft The patient was prepped and draped in the dorsal lithotomy position. The anterior lip of the cervix was visualized and the uterus was sounded to 8 cm. The endocervical canal was then dilated and the VCare cannula inserted and the balloon inflated at the fundus. The tenaculum was removed. The cup was fitted over the cervix and a locking cap was fitted into place. Attention was then directed above. The infraumbilical area was injected with 0.5% Marcaine plain. An incision was made with a knife and each layer was serially elevated and incised until the fascia was opened and identified. Stay sutures were placed of 0 Vicryl. The peritoneum was opened bluntly. The Trish cannula was placed and the balloon inflated. Placement of the scope confirmed proper positioning. Following this, the secondary ports were placed. These were placed slightly below the level of the umbilicus and laterally. Each of these areas was transilluminated, injected with Marcaine, incision was made with a knife and the trocars were placed under direct vision. Left-sided port was a 5 mm port and the right was a Veress needle with the expanding port. Following this, the pelvis was visualized and the planned procedure appeared appropriate. Because of the severe prolapse, care was taken to keep the uterus barely very high in the abdomen. The posterior adhesions were taken down using the LigaSure [place] device. The patient's left utero-ovarian ligament was serially coagulated and divided. The round ligament was divided and the anterior leaf of the peritoneum incised allowing for partial bladder flap. The peritoneum was taken down posteriorly as well. The uterine vessels were skeletonized and taken at the level of the internal os with multiple coagulations and division. Further dissection was done both posteriorly and anteriorly. Attention was directed to the patient's right side and the round ligament was serially coagulated and divided. The anterior leaf of the peritoneum was taken down allowing for completion of the bladder flap. Further dissection was done across the anterior portion and the cup could easily be seen. The peritoneum was taken down posteriorly, allowing the peritoneum to come down off the cervix. The uterine vessels were coagulated multiple times and divided. Further dissection was done and at this point, it was felt that the specimen could be removed. The Sonicision device was used to separate the specimen from the vaginal cuff. It was begun posteriorly at the uterosacral ligament on the right, carried across posteriorly and around on the left side anteriorly and again from the right uterosacral ligament around the right side and completing it anteriorly. Following this, the specimen was retrieved vaginally intact. The cystoscopy was then done because of her severe prolapse and the risk of the injury to the ureters. The Buckner catheter was removed and cystoscopy was done using the 70 degree scope. There was no injury to the bladder and it was noted that she had bilateral stents in place. These had apparently been placed during her surgery in August. Following this, the cystoscopy was complete and it was removed after draining the bladder. The Buckner catheter was replaced. The vaginal canal was then packed with a glove with a wet lap. Attention was redirected above and the abdomen was copiously irrigated, inspected and bleeding points on the cuff were controlled with cautery. The cuff itself was closed with the Endo Stitch. This was begun at the patient's right uterosacral ligament, taking care to incorporate the PATIENT NAME: MARÍA GRIER OPERATIVE REPORT DATE OF : 61 REPORT #: [id number] PHYSICIAN: MARISOL PANG MD PCP: MUKUND FRAZIER MD REPORT IS CONFIDENTIAL AND NOT TO BE RELEASED WITHOUT AUTHORIZATION [facility] [address] [place], [place] [address] Draft vaginal mucosa both posteriorly and anteriorly and run across to the patient's left uterosacral ligament and back to the center. Following this, the abdomen was closed. As much CO2 as possible was allowed to escape prior to removal of the instruments. The fascial incision of the umbilicus was re-identified and closed with running suture of 0 Vicryl. The skin incisions were closed with subcuticular sutures of 3-0 Vicryl Rapide. Attention was directed down below and the anterior repair was begun. The anterior vaginal wall was quite long. It was incised in the midline from the vaginal cuff to the midurethral area. The vaginal mucosa was from the underlying tissue with a combination of blunt and sharp dissection. The upper aspects of this were also taken out laterally behind the pubic rami. The obturator notches were identified bilaterally and incision made. The trocars for the sling were then introduced. These were placed at the lowest most medial portion of the obturator notch and taken immediately behind the pubic rami and into the lateral apex of the vaginal incision. Care was taken to avoid buttonholing the vagina. After placement of both the trocars, cystoscopy was repeated to be sure there was no injury. The Buckner catheter was again removed and the 70 degree scope introduced. The bladder evaluated. There was no evidence of any injury. The bladder was again drained after removal of the cystoscope and the Buckner catheter replaced. Following this, the sling was placed. This was placed in the midurethral area keeping the attention appropriate. The trocars were brought out through the skin incisions and the plastic covering removed. The excess was trimmed at the skin. The cystocele repair was then begun. The remaining pubovesical fascia was reapproximated at the center with interrupted sutures of 0 Vicryl. The vaginal mucosa was then trimmed a significant amount and the vaginal mucosa was closed from the midurethral area down to the cuff with a running suture of 2-0 Vicryl. The posterior repair was then begun. The triangle of tissue was removed from the perineal body with a knife. The vaginal mucosa was then undermined and incised in the midline with the Metzenbaum scissors. This was carried to the apex. The vaginal mucosa was from the underlying tissue with a combination of blunt and sharp dissection. The dissection was taken up to the sacrospinous ligaments bilaterally. The SessionM device was used to place a 0 Ti-Cron braided suture into the midportion of the sacrospinous ligament on each side. This was then sutured to the vaginal cuff retroperitoneally and tied down bilaterally. This elevated the vaginal cuff significantly. The rectocele repair was done in the traditional manner, plicating the levators in the midline as there was essentially no perirectal fascial type tissue. This was done with interrupted sutures of 0 Vicryl. There was some ongoing light bleeding from the apex of the incisions around the sacrospinous ligaments and FloSeal was injected around these areas to aid in hemostasis. The vaginal mucosa was then trimmed and the vaginal mucosa was closed in a Y-shaped manner as there was some widening at the apex. This was closed across the top 1st with a running suture of 2-0 Vicryl and then down the center with a running suture of 2-0 Vicryl to the hymenal ring. The perineal body was reapproximated with interrupted sutures of 0 Vicryl. The posterior fourchette was recreated with a running suture of 2-0 Vicryl. The skin of the perineum was closed with interrupted PATIENT NAME: MARÍA GRIER OPERATIVE REPORT DATE OF : 61 REPORT #: [id number] PHYSICIAN: MARISOL PANG MD PCP: MUKUND FRAZIER MD REPORT IS CONFIDENTIAL AND NOT TO BE RELEASED WITHOUT AUTHORIZATION [facility] [address] [place] [address] Draft sutures of 2-0 Vicryl placed subcuticularly. Following this, there was good length and caliber to the vagina. There was good hemostasis noted. The vaginal canal was packed with Premarin-coated gauze. All sponge and needle counts were correct. She tolerated the procedure very well and was taken to the recovery room in good condition. MD MINH Stanley/RAJEEVL /[id number] Copies: ~ PATIENT NAME: MARÍA GRIER OPERATIVE REPORT DATE OF : 61 REPORT #: [id number] PHYSICIAN: MARISOL PANG MD PCP: MUKUND FRAZIER MD REPORT IS CONFIDENTIAL AND NOT TO BE RELEASED WITHOUT AUTHORIZATION
[~2023-02-05 11:54] MED LIST: ADULT LOW DOSE81 MG PO; GLUCOTROL XL5 MG PO; LEVOTHYROXINE125 MC1 PO; LEVOTHYROXINE125 MCG PO; LIPITOR20 MG PO; LISINOPRIL20 MG PO; LOVASTATIN20 MG PO; METFORMIN HCL1000 MG PO
[2023-03-08] MEDS ORDERED: ELIQUIS5 MG PO (15:19)
[2023-03-08] MEDS ORDERED: METOPROLOL SUCC50 MG PO (15:22)
[2023-03-08 15:28] VITALS: BP 127/81
[2023-03-17] VITALS (8 sets, daily range): BP systolic 96–170; BP diastolic 52–94
[2023-03-18 01:54] VITALS: BP 100/61
[2023-03-18 05:17] VITALS: BP 101/55
[2023-03-18 08:33] LABS: HEMATOCRIT 30.3 % (35.0-50.0); HEMOGLOBIN 10.2 g/dL (12.0-18.0); MCH 31.4 (27-36); MCHC 33.8 g/dl (30-36); RBC 3.26 M/ul (4.3-5.7); RDW 14.2 (10.5-15.0)
[2023-03-18 08:47] LABS: ALBUMIN 2.9 g/dL (3.4-5.0); ALBUMIN/GLOBULIN RATIO 0.85 (1.1-2.4); ANION GAP 12.9 (7-21); BILIRUBIN, TOTAL 0.8 ng/dL (0.2-1.0); BUN/CREATININE RATIO 12.5 (6.0-28.6); CALCIUM 8.4 mg/dL (8.5-10.1); CREATININE, SERUM 0.8 mg/dL (0.55-1.02); POTASSIUM 3.9 mmol/L (3.5-5.1); PROTEIN, TOTAL 6.3 g/dL (6.4-8.2)
[2023-03-18 09:50] VITALS: BP 103/69
[2023-03-18] MEDS ORDERED: PROBIOTIC1 EAC1 PO (10:59)
[2023-03-18 13:35] VITALS: BP 113/62
[2023-03-18 17:56] VITALS: BP 114/70
[2023-03-18 20:45] VITALS: BP 104/67
[2023-03-19 06:38] VITALS: BP 124/79
[2023-03-19 09:06] VITALS: BP 103/59
[2023-03-19 14:02] VITALS: BP 109/66
[2023-03-19 17:36] VITALS: BP 107/67
--- NOTE | 2023-03-23 17:38 | PATH ---
[facility] [address] [place], [place] [address] Signed SPECIMEN(S): A CX UTERUS SPECIMEN SOURCE: A. CX UTERUS CLINICAL HISTORY: Incomplete uterovaginal prolapse; midline cystocele FINAL PATHOLOGIC DIAGNOSIS: Cervix and uterus: - Proliferative endometrium, negative for hyperplasia or atypia. - Endometrial adenomyosis. - Benign endo and ectocervix. JVR:mike MICROSCOPIC EXAMINATION: Histologic sections of all submitted blocks are examined by light microscopy. These findings, together with the gross examination, support the pathologic diagnosis. GROSS DESCRIPTION: The specimen, labeled and designated "Mercedes Cee, " and designated on the requisition "cervix and uterus," is received in formalin and consists of 70 gram uterus and cervix, which is 3.5 x 3.2 x 7.6 cm (cornu-cornu x anterior-posterior x fundus-ectocervix). The serosal surface is pale pink and smooth with a portion of vaginal cuff present on one aspect measuring 2.8 x 2.0 x 1.5 cm. The ectocervical mucosa is pale pink and smooth. Serial sectioning of the cervix fails to demonstrate any gross abnormalities. The triangular endometrial cavity is lined by a pink-red smooth endometrium with one defect that extends into the myometrium measuring 1.4 cm in greatest dimension. The endometrium has an average thickness of 0.1 cm. Sectioning through the uterus reveals a pink moderately trabeculated myometrium. Grit Blaster sections are submitted in three cassettes. Cassette Summary: (A1) cervix (A2) uterine wall (A3) defect FB (under the direct supervision of a pathologist) PATIENT NAME: MARÍA CEE PATHOLOGY DATE OF : 61 REPORT #: [id number] PHYSICIAN: ADDI VIDAL PCP: MUKUND FRAZIER MD REPORT IS CONFIDENTIAL AND NOT TO BE RELEASED WITHOUT AUTHORIZATION [facility] [address] [place], [place] [address] Signed The Gross Description was prepared using a voice recognition system. The report was reviewed for accuracy; however, sound-alike word errors, addition and/or deletions may occur. If there is any question about this report, please contact Client Services. PERFORMING LABORATORY: Technical component was performed by [facility], [address] [place] [id number] (CLIA# [id number]). Professional interpretation was performed by [facility], [address] [place] [id number] (CLIA#: [id number]). Diagnostician: Hill Lara MD Pathologist Electronically Signed 03/23/2023 Copies: ~ PATIENT NAME: MARÍA CEE PATHOLOGY DATE OF : 61 REPORT #: [id number] PHYSICIAN: ADDI PATHOLOGY PCP: MUKUND FRAZIER MD REPORT IS CONFIDENTIAL AND NOT TO BE RELEASED WITHOUT AUTHORIZATION
== END 2023-03-19 18:07 | disposition home or self-care (01) | DRG 742 ==
LOC: MS 02-24 07:30 → DS 02-24 07:30 → EDSTATUS 02-24 07:30 → MS 03-17 05:45 → DSVR 03-17 05:45 → MS 03-17 07:30
PROVIDERS: ADMIT Obstetrics & Gynecology; ATTEND Obstetrics & Gynecology
PROC: 0DNW4ZZ Release Peritoneum, Percutaneous Endoscopic Approach (ICD-10-PCS; 2023-03-17)
PROC: 0TJB8ZZ Inspection of Bladder, Via Natural or Artificial Opening Endoscopic (ICD-10-PCS; 2023-03-17)
PROC: 0UT94ZZ Resection of Uterus, Percutaneous Endoscopic Approach (ICD-10-PCS; principal; 2023-03-17 07:30)
PROC: 0JQC0ZZ Repair Pelvic Region Subcutaneous Tissue and Fascia, Open Approach (ICD-10-PCS; 2023-03-17 07:30)
PROC: 0JQC0ZZ Repair Pelvic Region Subcutaneous Tissue and Fascia, Open Approach (ICD-10-PCS; 2023-03-17 07:30)
PROC: 0USG0ZZ Reposition Vagina, Open Approach (ICD-10-PCS; 2023-03-17 07:30)
DX: N81.3 Complete uterovaginal prolapse (principal); I48.20 Chronic atrial fibrillation, unspecified; E11.9 Type 2 diabetes mellitus without complications; E03.9 Hypothyroidism, unspecified; I10 Essential (primary) hypertension; E78.00 Pure hypercholesterolemia, unspecified; E66.9 Obesity, unspecified; N73.6 Female pelvic peritoneal adhesions (postinfective); D64.9 Anemia, unspecified; Z20.822 Contact with and (suspected) exposure to COVID-19; Z79.01 Long term (current) use of anticoagulants; Z87.440 Personal history of urinary (tract) infections; Z87.19 Personal history of other diseases of the digestive system; Z86.711 Personal history of pulmonary embolism; Z98.890 Other specified postprocedural states; Z90.721 Acquired absence of ovaries, unilateral; Z79.84 Long term (current) use of oral hypoglycemic drugs; Z79.890 Hormone replacement therapy; Z90.49 Acquired absence of other specified parts of digestive tract; Z79.899 Other long term (current) drug therapy; Z88.8 Allergy status to other drugs, medicaments and biological substances; Z68.31 Body mass index [BMI] 31.0-31.9, adult
CPT/HCPCS: 00840; 36415; 80053; 85027; 88305; 88307; A9270; C1771; C2631; J0131; J0690; J1100; J1644; J1815; J1885; J2001; J2250; J2405; J2704; J2765; J3475; J3490; J7121; U0002

== ENCOUNTER 2024-01-22 10:58 | Emergency (ER) | payer OTHER ==
[~2024-01-22] VITALS: Ht 165.1 cm; Wt 81.9 kg
[~2024-01-22 10:58] MED LIST changes: +ELIQUIS5 MG PO; +METOPROLOL SUCC50 MG PO; +PROBIOTIC1 EAC1 PO
[2024-01-22 11:47] LABS: ALBUMIN 3.3 g/dL (3.4-5.0); ALBUMIN/GLOBULIN RATIO 0.72 (1.1-2.4); ANION GAP 15.3 (7-21); BILIRUBIN, TOTAL 0.5 ng/dL (0.2-1.0); BUN/CREATININE RATIO 16.86 (6.0-28.6); CALCIUM 8.9 mg/dL (8.5-10.1); CREATININE, SERUM 0.83 mg/dL (0.55-1.02); POTASSIUM 4.3 mmol/L (3.5-5.1); PROTEIN, TOTAL 7.9 g/dL (6.4-8.2)
[2024-01-22] MEDS ORDERED: AMOXICILLIN500 MG PO (12:22)
[2024-01-22 12:30] VITALS: BP 111/83
== END 2024-01-22 12:30 | disposition home or self-care (01) ==
LOC: ED 10:58
PROVIDERS: Emergency Medicine
DX: K04.7 Periapical abscess without sinus (principal); E11.9 Type 2 diabetes mellitus without complications; E03.9 Hypothyroidism, unspecified; Z88.8 Allergy status to other drugs, medicaments and biological substances
CPT/HCPCS: 36415; 80053; 99283